=== PATIENT | male | born 1935 | race Caucasian/White ===

== ENCOUNTER 2020-02-16 09:43 | Emergency (ER) | payer OTHER, MEDICAID ==
[~2020-02-16] VITALS: Ht 162.6 cm; Wt 63.5 kg
--- NOTE | 2020-02-16 09:43 | NUR ---
BIBA NATALIA TAKEN TO BED 10
[2020-02-16 09:47] VITALS: BP 142/78
--- NOTE | 2020-02-16 09:50 | NUR ---
dr santana at bedside evaluating pt.
--- NOTE | 2020-02-16 10:00 | NUR ---
honorio cortez from [facility] found in the floor at 0730 am by rn c/o rt arm pain .Pt aox3 , afibrile , ambulatory with assistance , no limitation rom both ue , le extrimities. pmhx dimentia , htn , dm
--- NOTE | 2020-02-16 10:03 | NUR ---
xray at bedside
--- NOTE | 2020-02-16 11:15 | NUR ---
pt comfortable in bed side rails up x1 and lock.
[2020-02-16 15:45] VITALS: BP 120/89
--- NOTE | 2020-02-16 15:48 | NUR ---
Patient discharged with v/s stable. Written and verbal after care instructions given and explained regarding fall prevention. Patient alert, oriented and verbalized understanding of instructions. [facility]. All questions addressed prior to discharge. ID band removed. Patient advised to follow up with PMD. Rx of acetaminophen. given. Patient educated on indication of medication including possible reaction and side effects. Opportunity to ask questions provided and answered.
== END 2020-02-16 15:48 | disposition home or self-care (01) ==
LOC: MED 09:43
DX: S63.501A Unspecified sprain of right wrist, initial encounter (principal); W19.XXXA Unspecified fall, initial encounter; Y93.89 Activity, other specified; Y92.89 Other specified places as the place of occurrence of the external cause; Y99.8 Other external cause status
CPT/HCPCS: 73110; 73130; 93005; 99285; Q0092